=== PATIENT | female | born 1985 | race Caucasian/White ===

== ENCOUNTER 2021-07-19 17:01 | Emergency (ER) | payer OTHER, SELFPAY ==
[2021-07-19] MEDS ORDERED: ONDANSETRON 4 MG/2 ML VIAL ONE ×2 (17:56→20:20)
[2021-07-19] MEDS ORDERED: NA CHLORIDE 0.9% 2,000 ML ONE (17:56)
[2021-07-19] MEDS ORDERED: FAMOTIDINE 20 MG/2 ML VIAL IV ONE (17:56)
[2021-07-19 18:50] LABS: Absolute Lymphocytes (CBC) 3.8 K/uL (0.7-4.9); Basophils % 1.1 % (0-1.3); Hematocrit 48.5 % (36.0-45.0); MPV 10.5 fL (7.6-11.3); RBC Red Blood Cell Count 5.51 M/uL (3.86-4.86)
[2021-07-19] MEDS ORDERED: NA CHLORIDE 0.9% 1,000 ML ONE (18:59)
--- NOTE | 2021-07-19 19:02 | RAD REPORT ---
EXAM DESCRIPTION: Luci Single View07/19/2021 5:57 pm CLINICAL HISTORY: Abdominal pain/vomiting COMPARISON: none FINDINGS: The lungs appear clear of acute infiltrate. The heart is normal size IMPRESSION: No acute abnormalities displayed
[2021-07-19 19:31] LABS: Albumin 3.2 g/dL (3.4-5.0); Bilirubin Direct 0.1 mg/dL (0-0.2); Bilirubin Total 0.7 mg/dL (0.2-1.0); Magnesium 2.4 mg/dL (1.8-2.4); Potassium 4.5 mmol/L (3.5-5.1); Protein, Total 7.2 g/dL (6.4-8.2)
[2021-07-19 19:33] LABS: Troponin (Emerg Dept Use Only) 7.92 ng/mL (0.0-0.045)
--- NOTE | 2021-07-19 20:01 | ER ---
Nurse's Notes [facility] Name: Mami Cornelius Age: 35 yrs Sex: Female : 1985 Arrival Date: 07/19/2021 Time: 17:04 Bed 17 Private MD: Diagnosis: ST elevation (STEMI) myocardial infarction of inferior wall;Vomiting;Obesity, unspecified;Diabetes mellitus due to underlying condition with ketoacidosis without coma Presentation: 07/19 17:23 Chief complaint: Patient states: has had n/v since Monday , was seen at [facility] for possible DKA and d/c, went to her PCP today and was sent here. Coronavirus screen: Client presents with at least one sign or symptom that may indicate coronavirus-19. Ebola Screen: Patient negative for fever greater than or equal to 101.5 degrees Fahrenheit, and additional compatible Ebola Virus Disease symptoms Patient denies exposure to infectious person. Patient denies travel to an Ebola-affected area in the 21 days before illness onset. No symptoms or risks identified at this time. Initial Sepsis Screen: Does the patient meet any 2 criteria? No. Patient's initial sepsis screen is negative. Does the patient have a suspected source of infection? No. Patient's initial sepsis screen is negative. Risk Assessment: Do you want to hurt yourself or someone else? Patient reports no desire to harm self or others. Onset of symptoms was July 16, 2021. 17:23 Method Of Arrival: Wheelchair iw 17:23 Acuity: WILLY 2 iw Historical: - Allergies: 17:25 No Known Allergies; iw - Home Meds: 17:33 Metformin Oral [Active]; gabapentin oral [Active]; valsartan oral [Active]; sertraline iw oral [Active]; Wellbutrin Oral [Active]; new diabetic med [Active]; - PMHx: 17:25 Diabetes mellitus; iw - PSHx: 17:25 section; iw - Immunization history:: Client reports having NOT received the Covid vaccine. - Social history:: Smoking status: Reported history of juuling and/or vaping. Screenin:30 Abuse screen: Denies threats or abuse. Denies injuries from another. Nutritional sl2 screening: No deficits noted. Tuberculosis screening: No symptoms or risk factors identified. Fall Risk None identified. No fall in past 12 months (0 pts). No secondary diagnosis (0 pts). No IV (0 pts). Ambulatory Aid- None/Bed Rest/Nurse Assist (0 pts). Gait- Normal/Bed Rest/Wheelchair (0 pts) Mental Status- Oriented to own ability (0 pts). Total Ramirez Fall Scale indicates No Risk (0-24 pts). Assessment: 17:30 General: Appears uncomfortable, obese, well groomed, well developed, Behavior is calm, sl2 cooperative, appropriate for age, Smells of ketones, Reports Hyperglycemia. 17:30 Pain: Denies pain. Neuro: No deficits noted. Cardiovascular: No deficits noted. sl2 Reports. Respiratory: No deficits noted. GI: Abdomen is round obese, Bowel sounds present X 4 quads. Reports nausea, vomiting. : No deficits noted. No signs and/or symptoms were reported regarding the genitourinary system. EENT: No deficits noted. No signs and/or symptoms were reported regarding the EENT system. Derm: No deficits noted. No signs and/or symptoms reported regarding the dermatologic system. Musculoskeletal: No deficits noted. No signs and/or symptoms reported regarding the musculoskeletal system. Vital Signs: 17:23 BP 133 / 103; Pulse 138; Resp 24 S; Temp 98.0; Pulse Ox 96% on R/A; Weight 136.08 kg; iw Height 5 ft. 9 in. (175.26 cm); Pain 8/10; 17:30 BP 132 / 98; Pulse 131; Resp 18; Temp 98.2; Pulse Ox 97% on R/A; sl2 18:30 BP 139 / 104; Pulse 120; Resp 24; Pulse Ox 96% on R/A; sl2 19:21 BP 118 / 87; Pulse 115; Resp 24; Pulse Ox 95% on R/A; sl2 19:30 BP 127 / 85; Pulse 99; Resp 18 S; Temp 98.5(O); Pulse Ox 95% on R/A; bb 20:00 BP 123 / 92; Pulse 97; Resp 18 S; Pulse Ox 99% on R/A; bb 20:30 BP 121 / 80; Pulse 99; Resp 20 S; Pulse Ox 98% on R/A; bb 21:00 BP 122 / 88; Pulse 122; Resp 20; Temp 98.2; Pulse Ox 98% on R/A; bb 21:30 BP 120 / 75; Pulse 119; Resp 20 S; Pulse Ox 96% on R/A; bb 22:00 BP 115 / 72; Pulse 105; Resp 16 S; Pulse Ox 95% on R/A; bb 22:34 BP 106 / 78; Pulse 110; Resp 18; Temp 98.1(O); Pulse Ox 96% on R/A; bb 23:00 BP 102 / 68; Pulse 97; Resp 18 S; Pulse Ox 96% on R/A; bb 17:23 Body Mass Index 44.30 (136.08 kg, 175.26 cm) iw ED Course: 17:04 Patient arrived in ED. as 17:06 Monty Escobar MD is Attending Physician. [facility] 17:25 Triage completed. iw 17:30 Arm band placed on. iw 17:30 Patient has correct armband on for positive identification. Bed in low position. Call sl2 light in reach. Side rails up X2. Adult w/ patient. 17:30 No provider procedures requiring assistance completed. sl2 17:54 Aleisha Pulido, RN is Primary Nurse. sl2 17:57 XRAY Chest (1 view) In Process Unspecified. EDMS 18:01 Inserted saline lock: 18 gauge in left hand, using aseptic technique. Blood collected. [facility] 18:37 Attending Physician role handed off by Monty Escobar MD [facility] 18:37 Efrain Lee MD is Attending Physician. [facility] 18:41 Lab(s) recollected, by me, sent to lab. 3 20:25 Inserted saline lock: 20 gauge in right upper arm, using aseptic technique. ds4 21:14 Call initated to [facility]. Patient accepted to CCU unit. cs9 22:48 Glucose, Ancillary Testing Sent. bb 22:49 Ketone, Serum Sent. bb 22:54 Dr. Love is the accepting doctor. Patient being transported to Room 6102. [address] [facility]. Administered Medications: 17:58 Drug: Pepcid (famotidine) 20 mg Route: IVP; Site: left hand; 2 18:53 Follow up: Response: No adverse reaction sl2 18:01 Drug: NS 0.9% 1000 ml Route: IV; Rate: 1 bolus; Site: left hand; sl2 18:53 Follow up: Response: No adverse reaction; IV Status: Completed infusion; IV Intake: sl2 1000ml 18:03 Drug: Zofran (Ondansetron) 4 mg Route: IVP; Site: left hand; sl2 18:54 Follow up: Response: No adverse reaction sl2 18:53 Drug: NS 0.9% 2000 ml Route: IV; Rate: 1 bolus; Site: left hand; sl2 20:10 Drug: Aspirin Chewable Tablet 324 mg Route: PO; 5 20:10 Drug: PlaVIX (clopidogrel) 600 mg Route: PO; jh5 20:14 Drug: Heparin ([place]-Bolus No thrombolytic) - HEParin 60 units/kg {Co-Signature: michael jh5 (Lisa Perales RN).} Route: IVP; Site: right upper arm; 20:15 Drug: Heparin ([place] Drip) 12 units/kg/hr - (HEParin 67954 units, D5W 500 ml) bb {Co-Signature: ld1 (Terri Goldstein RN).} Route: IV; Rate: calculated rate; Site: right upper arm; 20:25 Drug: Rocephin (cefTRIAXone) 1 grams Route: IV; Rate: calculated rate; Site: right bb upper arm; 20:25 Drug: Insulin Drip - (Insulin Regular Human 100 units, NS 0.9% 100 ml) {Co-Signature: 5 michael (Lisa Perales RN).} Route: IV; Rate: 4 units/hr; Site: left hand; 20:27 Drug: Zofran (Ondansetron) 4 mg Route: IVP; Site: left hand; Point of Care Testing: Blood Glucose: 20:28 Blood Glucose: 283 mg/dL; bb 22:35 Blood Glucose: 232 mg/dL; bb Ranges: Intake: 18:53 IV: 1000ml; Total: 1000ml. sl2 Outcome: 20:00 ER care complete, transfer ordered by MD. coronado 07/20 00:28 Patient left the ED. bb Signatures: Dispatcher [employer] Efrain Mccarthy MD MD cha Rittger, Kevin, MD MD kdr Martinez, Amelia as Ballard, Brenda, RN RN bb Williams, Irene, RN RN iw Swanson, Donovan 4 Olga Neville3 Fabian Lind 4 Lyudmila Carter 9 Aleisha Pulido RN RN sl2 Harleen Schrader RN RN jh5 Lisa Perales RN bb Terri Goldstein RN ld1 Corrections: (The following items were deleted from the chart) 07/19 20:43 20:23 Heparin ([place] Drip) 12 units/kg/hr - (HEParin 01176 units, D5W 500 ml) IV at bb calculated rate in left upper arm 5
--- NOTE | 2021-07-19 20:01 | EDPHYS ---
Physician Documentation [facility] Name: Mami Cornelius Age: 35 yrs Sex: Female : 1985 Arrival Date: 07/19/2021 Time: 17:04 Bed 17 Private MD: ED Physician Efrain Lee HPI: 07/19 18:25 This 35 yrs old Female presents to ER via Wheelchair with complaints of Vomiting. kdr 18:25 The patient presents to the emergency department with nausea, that is mild, vomiting, kdr that is intermittent. 18:26 Onset: The symptoms/episode began/occurred 3 days. Possible causes: DKA. The symptoms kdr are aggravated by nothing. The symptoms are alleviated by nothing. Associated signs and symptoms: Pertinent positives: nausea, vomiting. Severity of symptoms: At their worst the symptoms were mild moderate in the emergency department the symptoms are unchanged. The patient has experienced a previous episode, [facility] in [place]. Patient has had nausea vomiting since Monday seen at [facility] for possible DKA and discharged. She went to her PCP today and was sent on to this emergency department for further treatment and evaluation. Historical: - Allergies: 17:25 No Known Allergies; iw - Home Meds: 17:33 Metformin Oral [Active]; gabapentin oral [Active]; valsartan oral [Active]; sertraline iw oral [Active]; Wellbutrin Oral [Active]; new diabetic med [Active]; - PMHx: 17:25 Diabetes mellitus; iw - PSHx: 17:25 section; iw - Immunization history:: Client reports having NOT received the Covid vaccine. - Social history:: Smoking status: Reported history of juuling and/or vaping. ROS: 18:26 Constitutional: Negative for fever, chills, and weight loss, Eyes: Negative for injury, kdr pain, redness, and discharge, ENT: Negative for injury, pain, and discharge, Neck: Negative for injury, pain, and swelling, Respiratory: Negative for shortness of breath, cough, wheezing, and pleuritic chest pain, Back: Negative for injury and pain, : Negative for injury, bleeding, discharge, and swelling, MS/Extremity: Negative for injury and deformity, Skin: Negative for injury, rash, and discoloration, Neuro: Negative for headache, weakness, numbness, tingling, and seizure activity. Psych: Negative for depression, anxiety, suicide ideation, homicidal ideation, and hallucinations, Allergy/Immunology: Negative for hives, rash, and allergies, Endocrine: Negative for neck swelling, polydipsia, polyuria, polyphagia, and marked weight changes, Hematologic/Lymphatic: Negative for swollen nodes, abnormal bleeding, and unusual bruising. 18:26 Cardiovascular: Positive for palpitations. 18:26 Abdomen/GI: Positive for nausea and vomiting, Negative for abdominal cramps, abdominal distension, black/tarry stool, rectal pain, rectal bleeding. Exam: 18:26 Constitutional: This is a well developed, well nourished patient who is awake, alert, kdr and in mild distress. Head/Face: Normocephalic, atraumatic. Eyes: Pupils equal round and reactive to light, extra-ocular motions intact. Lids and lashes normal. Conjunctiva and sclera are non-icteric and not injected. Cornea within normal limits. Periorbital areas with no swelling, redness, or edema. Neck: Trachea midline, no thyromegaly or masses palpated, and no cervical lymphadenopathy. Supple, full range of motion without nuchal rigidity, or vertebral point tenderness. No Meningismus. Chest/axilla: Normal chest wall appearance and motion. Nontender with no deformity. No lesions are appreciated. Respiratory: Lungs have equal breath sounds bilaterally, clear to auscultation and percussion. No rales, rhonchi or wheezes noted. No increased work of breathing, no retractions or nasal flaring. Abdomen/GI: Soft, non-tender, with normal bowel sounds. No distension or tympany. No guarding or rebound. No evidence of tenderness throughout. Back: No spinal tenderness. No costovertebral tenderness. Full range of motion. Skin: Warm, dry with normal turgor. Normal color with no rashes, no lesions, and no evidence of cellulitis. MS/ Extremity: Pulses equal, no cyanosis. Neurovascular intact. Full, normal range of motion. Neuro: Awake and alert, GCS 15, oriented to person, place, time, and situation. Cranial nerves II-XII grossly intact. Motor strength 5/5 in all extremities. Sensory grossly intact. Cerebellar exam normal. Normal gait. Psych: Awake, alert, with orientation to person, place and time. Behavior, mood, and affect are within normal limits. 18:26 ENT: Mouth: Oral mucosa: dry, Voice: is normal. Vital Signs: 17:23 BP 133 / 103; Pulse 138; Resp 24 S; Temp 98.0; Pulse Ox 96% on R/A; Weight 136.08 kg; iw Height 5 ft. 9 in. (175.26 cm); Pain 8/10; 17:30 BP 132 / 98; Pulse 131; Resp 18; Temp 98.2; Pulse Ox 97% on R/A; sl2 18:30 BP 139 / 104; Pulse 120; Resp 24; Pulse Ox 96% on R/A; sl2 19:21 BP 118 / 87; Pulse 115; Resp 24; Pulse Ox 95% on R/A; sl2 19:30 BP 127 / 85; Pulse 99; Resp 18 S; Temp 98.5(O); Pulse Ox 95% on R/A; bb 20:00 BP 123 / 92; Pulse 97; Resp 18 S; Pulse Ox 99% on R/A; bb 20:30 BP 121 / 80; Pulse 99; Resp 20 S; Pulse Ox 98% on R/A; bb 21:00 BP 122 / 88; Pulse 122; Resp 20; Temp 98.2; Pulse Ox 98% on R/A; bb 21:30 BP 120 / 75; Pulse 119; Resp 20 S; Pulse Ox 96% on R/A; bb 22:00 BP 115 / 72; Pulse 105; Resp 16 S; Pulse Ox 95% on R/A; bb 22:34 BP 106 / 78; Pulse 110; Resp 18; Temp 98.1(O); Pulse Ox 96% on R/A; bb 23:00 BP 102 / 68; Pulse 97; Resp 18 S; Pulse Ox 96% on R/A; bb 17:23 Body Mass Index 44.30 (136.08 kg, 175.26 cm) iw MDM: 18:26 Data reviewed: vital signs, nurses notes, lab test result(s), radiologic studies. kdr Counseling: I had a detailed discussion with the patient and/or guardian regarding: the historical points, exam findings, and any diagnostic results supporting the discharge/admit diagnosis, lab results, the need for further work-up and treatment in the hospital. 18:37 Patient medically screened. [facility] 07/19 17:19 Order name: Basic Metabolic Panel; Complete Time: 19:51 kdr 07/19 17:19 Order name: CBC with Diff kdr 07/19 17:19 Order name: LFT's; Complete Time: 19:51 kdr 07/19 17:19 Order name: Magnesium; Complete Time: 19:51 kdr 07/19 17:19 Order name: NT PRO-BNP; Complete Time: 19:51 kdr 07/19 17:19 Order name: PT-INR; Complete Time: 19:51 kdr 07/19 17:19 Order name: Troponin (emerg Dept Use Only); Complete Time: 19:51 kdr 07/19 18:10 Order name: Glucose, Ancillary Testing; Complete Time: 18:24 EDMS 07/19 19:43 Order name: Procalcitonin 07/19 19:45 Order name: ABG 07/19 19:55 Order name: Ketone, Serum cliff 07/19 19:56 Order name: Acetone Level EDNC 07/19 20:39 Order name: Manual Differential EDNC 07/19 20:41 Order name: Glucose, Ancillary Testing EDNC 07/19 17:19 Order name: XRAY Chest (1 view); Complete Time: 19:[address] [facility] 07/19 17:19 Order name: EKG; Complete Time: 17:[address] [facility] 07/19 21:41 Order name: COVID-19 SARS RT PCR (Document "Date of Onset" if Symptomatic) cs9 07/19 21:49 Order name: Glucose, Ancillary Testing EDNC 07/19 22:48 Order name: Glucose, Ancillary Testing EDNC 07/19 17:19 Order name: Cardiac monitoring; Complete Time: 18:[address] [facility] 07/19 17:19 Order name: EKG - Nurse/Tech; Complete Time: 22:48 kdr 07/19 17:19 Order name: IV Saline Lock; Complete Time: 18:01 kdr 07/19 17:19 Order name: Labs collected and sent; Complete Time: 18:[address] [facility] 07/19 17:19 Order name: O2 Per Protocol; Complete Time: 18:01 kdr 07/19 17:19 Order name: O2 Sat Monitoring; Complete Time: 18:01 kdr 07/19 17:30 Order name: FSBS; Complete Time: 18:[address] [facility] 07/19 18:12 Order name: Labs - recollect needed: recollect green, lavender and blue top; Complete bd Time: 18:44 07/19 20:04 Order name: IV Saline Lock - Large Bore; Complete Time: 20:25 cliff Administered Medications: 17:58 Drug: Pepcid (famotidine) 20 mg Route: IVP; Site: left hand; sl2 18:53 Follow up: Response: No adverse reaction sl2 18:01 Drug: NS 0.9% 1000 ml Route: IV; Rate: 1 bolus; Site: left hand; sl2 18:53 Follow up: Response: No adverse reaction; IV Status: Completed infusion; IV Intake: sl2 1000ml 18:03 Drug: Zofran (Ondansetron) 4 mg Route: IVP; Site: left hand; sl2 18:54 Follow up: Response: No adverse reaction sl2 18:53 Drug: NS 0.9% 2000 ml Route: IV; Rate: 1 bolus; Site: left hand; sl2 20:10 Drug: Aspirin Chewable Tablet 324 mg Route: PO; 5 20:10 Drug: PlaVIX (clopidogrel) 600 mg Route: PO; 5 20:14 Drug: Heparin ([place]-Bolus No thrombolytic) - HEParin 60 units/kg {Co-Signature: bb jh5 (Lisa Perales RN).} Route: IVP; Site: right upper arm; 20:15 Drug: Heparin ([place] Drip) 12 units/kg/hr - (HEParin 10993 units, D5W 500 ml) bb {Co-Signature: ld1 (Terri Goldstein RN).} Route: IV; Rate: calculated rate; Site: right upper arm; 20:25 Drug: Rocephin (cefTRIAXone) 1 grams Route: IV; Rate: calculated rate; Site: right bb upper arm; 20:25 Drug: Insulin Drip - (Insulin Regular Human 100 units, NS 0.9% 100 ml) {Co-Signature: jh5 bb (Lisa Perales RN).} Route: IV; Rate: 4 units/hr; Site: left hand; 20:27 Drug: Zofran (Ondansetron) 4 mg Route: IVP; Site: left hand; Point of Care Testing: Blood Glucose: 20:28 Blood Glucose: 283 mg/dL; bb 22:35 Blood Glucose: 232 mg/dL; bb Ranges: Critical Glucose Levels:Adult <50 mg/dl or >400 mg/dl <40 mg/dl or >180 mg/dl Disposition Summary: 07/19/21 20:00 Transfer Ordered Transfer Location: [facility] cliff Reason: Higher level of care cliff Condition: Critical cliff Problem: new cliff Symptoms: have improved cliff Accepting Physician: to ccu/cath(07/20/21 00:28) bb Diagnosis - ST elevation (STEMI) myocardial infarction of inferior wall cliff - Vomiting cliff - Obesity, unspecified cliff - Diabetes mellitus due to underlying condition with ketoacidosis without coma cliff Discharge Instructions: - Discharge Summary Sheet sl2 Forms: - Medication Reconciliation Form cliff - SBAR form sl2 Signatures: Dispatcher [employer] EDRenetta Haywood Corey, MD MD cha Rittger, Kevin, MD MD kdr Ballard, Brenda RN RN bb Lidia Villa RN Aleisha Blake RN RN sl2 Harleen Schrader RN RN jh5 Lisa Perales RN bb Terri Goldstein RN ld1 Corrections: (The following items were deleted from the chart) 07/20 00:28 07/19 20:00 to ccu/cath cliff rodriguez
[2021-07-19] MEDS ORDERED: HEPARIN/D5W 25,000 UNIT/500 ML BAG IV ONE (20:06)
[2021-07-19] MEDS ORDERED: CLOPIDOGREL 75 MG TABLET ONE (20:06)
[2021-07-19] MEDS ORDERED: HEPARIN 5000 UNIT/ML 1 ML VIAL ONE (20:06)
[2021-07-19] MEDS ORDERED: ASPIRIN 81 MG CHEWABLE TABLET ONE (20:06)
[2021-07-19 20:07] LABS: Arterial Blood Carboxyhemoglob 3.3 % (0-1.5); Blood Gas Oxyhemoglobin 93.6 % (94-97); Blood O2 Saturation 97.9 % (92-98.5)
[2021-07-19] MEDS ORDERED: INSULIN -REGULAR HUMAN 50 UNIT/0.5 ML ML ONE (20:15)
[2021-07-19] MEDS ORDERED: NA CHLORIDE 0.9% 100 ML ONE (20:15)
[2021-07-19] MEDS ORDERED: CEFTRIAXONE 1000 MG/VIAL ONE (20:20)
[2021-07-19 21:00] LABS: Blood Morphology Comment NOTED (NOT SEEN); Platelet Estimate ADEQ; Polychromasia 1+
[2021-07-20 00:48] VITALS: TEMP 98.1; O2SAT 96
[2021-07-20 00:49] VITALS: BP 102/68
--- NOTE | 2021-07-21 08:06 | EKG ---
Test Date: 2021-07-19 Test Time: 19:54:02 Operations Liaison: JAI MEASUREMENT RESULTS: Intervals: Rate: 112 CO: 138 QRSD: 72 QT: 326 QTc: 444 [place]: P: 79 CO: 138 QRS: 90 T: 11 INTERPRETIVE STATEMENTS: Sinus tachycardia Rightward axis Borderline ECG Compared to ECG 07/19/2021 19:23:55 Right-axis deviation now present Electronically Signed On 07-21-21 08:03:33 WOUND CARE PHYSICIAN by Mauro Hayes
--- NOTE | 2021-07-21 08:07 | EKG ---
Test Date: 2021-07-19 Test Time: 19:23:55 Stem Shaper: RALPH MEASUREMENT RESULTS: Intervals: Rate: 111 MT: 130 QRSD: 80 QT: 340 QTc: 462 [place]: P: 65 MT: 130 QRS: 71 T: 7 INTERPRETIVE STATEMENTS: Sinus tachycardia Otherwise normal ECG No previous ECG available for comparison Electronically Signed On 07-21-21 08:03:35 CONTAINER REPAIRER by Mauro Hayes
== END 2021-07-20 00:28 | disposition short-term general hospital (02) ==
LOC: ER 17:01
DX: I21.19 ST elevation (STEMI) myocardial infarction involving other coronary artery of inferior wall (principal); E11.10 Type 2 diabetes mellitus with ketoacidosis without coma; E66.9 Obesity, unspecified; Z20.822 Contact with and (suspected) exposure to COVID-19
CPT/HCPCS: 36415; 71045; 80048; 80076; 82010; 82805; 82947; 83735; 83880; 84145; 84484; 85025; 85610; 93005; 99285; J1644; J2405; J7030; U0003